=== PATIENT | female | born 1990 ===

== ENCOUNTER 2017-07-28 17:05 | Emergency (ER) | payer MEDICAID ==
[2017-07-28 17:25] VITALS: RESP 18
[2017-07-28 17:35] VITALS: BMI 33.2
[2017-07-28] MEDS ORDERED: Tmp-Smz 800 mg-160 mg DS Tab PO STA (17:40)
--- NOTE | 2017-07-28 17:42 | C.PDOC ---
History Of Present Illness Patient presents to ED for evaluation of inset bite (?spider) to left leg that she noticed two days ago. Yesterday she states the pustule that was present opened up and the area drained. She denies fever, bleeding, other injuries. Patient has been applying neosporin to area and keeping area clean. Time Seen by Provider: 07/28/17 17:35 Chief Complaint (Nursing): Bite History Per: Patient History/Exam Limitations: no limitations Onset/Duration Of Symptoms: Days (6) Current Symptoms Are (Timing): Better Location Of Injury: Left: Leg Severity: Mild Past Medical History Reviewed: Historical Data, Nursing Documentation, Vital Signs Vital Signs: Last Vital Signs Temp 98 F 07/28/17 18:40 Pulse 75 07/28/17 18:40 Resp 18 07/28/17 18:40 BP 106/71 07/28/17 18:40 Pulse Ox 97 07/28/17 18:40 - Medical History PMH: No Chronic Diseases Family History: States: No Known Family Hx Review Of Systems Except As Marked, All Systems Reviewed And Found Negative. Constitutional: Negative for: Fever, Chills Skin: Positive for: Other (left lateral leg bug bite). Negative for: Rash Neurological: Negative for: Weakness, Numbness Physical Exam - Physical Exam Appears: Well, Non-toxic, No Acute Distress Skin: Other (left laterla knee - open/drained pustule with approx 0.5cm area of surrounding erythema, no fluctuance or induration) Head: Normacephalic Oral Mucosa: Moist Cardiovascular: Rhythm Regular Respiratory: Normal Breath Sounds, No Rales, No Rhonchi, No Wheezing Extremity: Normal ROM, Tenderness (area of pustule mildly TTP), No Pedal Edema, No Calf Tenderness Pulses: Left Dorsalis Pedis: Normal, Right Dorsalis Pedis: Normal Neurological/Psych: Oriented x3, Normal Sensation Gait: Steady ED Course And Treatment O2 Sat by Pulse Oximetry: 99 (RA) Pulse Ox Interpretation: Normal Progress Note: Area of erythema traced by me. Patient given PO Bactrim in ED and Rx for same. She was instructed to follow up with PMD in 1-2 days, and understands she should return to ED if symptoms worsen. Disposition Counseled Patient/Family Regarding: Diagnosis, Need For Followup, Rx Given - Disposition Referrals: Garry Connelly MD [Staff Provider] - Disposition: HOME/ ROUTINE Disposition Time: 17:55 Condition: STABLE Additional Instructions: FOLLOW UP WITH YOUR DOCTOR IN 1-2 DAYS USE MEDICATION UNTIL FINISHED RETURN TO ER IF SYMPTOMS WORSEN Prescriptions: Sulfamethoxazole/Trimethoprim [Bactrim DS 800 mg-160 mg] 1 tab PO BID #14 tab Instructions: Insect Bite or Sting (ED) Forms: [employer] (Croatian) Print Language: WALLISIAN - Clinical Impression Clinical Impression: Pustule, Insect bite
[2017-07-28] MEDS ORDERED: Tmp-Smz 800 mg-160 mg DS Tab ONE (17:54)
[2017-07-28 18:40] VITALS: BP 106/71; PULSE 75; TEMP 98
[2017-07-28 18:55] VITALS: O2SAT 99
== END 2017-07-28 18:47 | disposition home or self-care (01) ==
LOC: C.ER 17:05
DX: L08.9 Local infection of the skin and subcutaneous tissue, unspecified (principal); S80.862A Insect bite (nonvenomous), left lower leg, initial encounter; W57.XXXA Bitten or stung by nonvenomous insect and other nonvenomous arthropods, initial encounter